=== PATIENT | female | born 1985 ===

== ENCOUNTER 2025-02-26 13:12 | Outpatient (AMB) | payer BC, SELFPAY ==
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
== END 2025-02-26 14:01 | disposition home or self-care (01) ==
LOC: HODSOBC 13:12
PROVIDERS: Supervising Provider Advanced Practice Midwife; Visit Provider Advanced Practice Midwife
DX: Z30.433 Encounter for removal and reinsertion of intrauterine contraceptive device (principal); D25.9 Leiomyoma of uterus, unspecified; Z88.2 Allergy status to sulfonamides
CPT/HCPCS: 99203; 99212; Q3014; G0463